=== PATIENT | female | born 1945 | race African-American/Black ===

== ENCOUNTER 2016-09-26 21:19 | Emergency (ER) | payer MEDICARE | END 2016-09-27 01:11 | disposition home or self-care (01) | LOC: CFTX 21:19 → CED 21:19 → CFTX 23:50 | DX: K04.7 Periapical abscess without sinus (principal); I10 Essential (primary) hypertension; F17.210 Nicotine dependence, cigarettes, uncomplicated | CPT/HCPCS: 99282 ==